=== PATIENT | female | born 1935 | race Caucasian/White ===

== ENCOUNTER 2017-06-03 11:21 | Inpatient (IN) | payer MEDICARE ==
[2017-06-03] VITALS (9 sets, daily range): BP systolic 80–132; BP diastolic 39–95
[~2017-06-03] VITALS: Ht 172.7 cm; Wt 70.3 kg
[2017-06-03] MEDS ORDERED: NORVASC2.5 MG PO (11:36)
[2017-06-03] MEDS ORDERED: PROAIR RESPICL90 MCG INH (11:37)
[2017-06-03] MEDS ORDERED: BETAMETHASONE D15 G1 TOP (11:37)
[2017-06-03 12:02] LABS: HEMATOCRIT 36.3 % (37.0-47.0); HEMOGLOBIN 12.4 gm/dL (12.0-15.0); MCH 28.9 pg (26.0-34.0); MCHC 34.2 g/dL (28.0-37.0); MCV 84.6 fL (80.0-100.0); MPV 6.9 fl. (7.2-11.1); NUCLEATED RBCS 0 /100WBC; PLATELET COUNT* 510 thou/uL (150-400); RDW-CV 13.9 % (10.5-14.5); WBC 20.3 thou/uL (4.0-11.0)
[2017-06-03 12:07] LABS: CALCIUM 9.3 mg/dL (8.5-10.1); POTASSIUM 3.6 mmol/L (3.5-5.1)
[2017-06-03 12:12] LABS: APTT 26.8 Seconds (25.0-31.3); PROTIME 10.1 Seconds (9.20-11.50)
[2017-06-03 12:18] LABS: ALBUMIN 2.6 g/dL (3.4-5.0); TOTAL BILIRUBIN 0.3 mg/dL (<0.1-1.0); TOTAL PROTEIN 7.3 g/dL (6.4-8.2)
[2017-06-03 12:20] LABS: TROPONIN-I LEVEL 2.65 ng/mL (<0.06)
[2017-06-03 12:25] LABS: ABSOLUTE LYMPHOCYTES 1.6 thou/uL (0.8-5.3); ABSOLUTE NEUTROPHILS 17.7 thou/uL (1.6-8.1); PLATELET ESTIMATE INCREASED
[2017-06-03 12:27] LABS: INFLUENZA A ANTIGEN None Detected (None Detect); INFLUENZA B ANTIGEN None Detected (None Detect)
--- NOTE | 2017-06-03 14:38 | EKG ---
[place] [address] ELECTROCARDIOGRAM REPORT Name: GUERITA BRICEET Monique Room: [place] [address] ADM IN .R.#: [id number] Admission: 06/03/17 Attend Phys: Imani Jones Discharge: Date of : 33 Report #: [id number] THIS REPORT FOR: //name// [facility] ED Test Date: 2017-06-03 Test Time: 12:35:43 Pat Name: CEASAR BRICE Department: Room: [facility] Gender: F Lead Sales Consultant: Ramila STOCKTON : 1935 Requested By: Concepcion Hull Order Number: [id number] MD: Tino Osorio Measurements Intervals [place] Rate: 119 P: -39 MA: 85 QRS: -20 QRSD: 129 T: 109 QT: 340 QTc: 479 Interpretive Statements atrial fibrillation Left bundle branch block No previous ECG available for comparison Electronically Signed On 06-03-2017 14:38:23 TELEVISION RECEIVER ANALYZER by Tino Osorio [email or web address] <ELECTRONICALLY SIGNED> By: Tino Osorio MD, [facility] 06/03/17 1438 1235 1235 Tino Osorio MD, [facility] /EPI
[2017-06-04] VITALS (20 sets, daily range): BP systolic 66–102; BP diastolic 39–66
[2017-06-04 05:48] LABS: TROPONIN-I LEVEL 4.55 ng/mL (<0.06)
[2017-06-04 06:00] LABS: CHOLESTEROL 82 mg/dL (<200); HDL CHOLESTEROL 31 mg/dL (>40); LDL CHOLESTEROL 39 mg/dL (<100); TC:HDL 2.6 Ratio (Not establshd); TRIGLYCERIDE 61 mg/dL (<150); VLDL 12 mg/dL (<40)
[2017-06-04 06:01] LABS: SERUM ASSESSMENT Clear
[2017-06-04 12:33] LABS: ABSOLUTE BASOPHILS 0.3 thou/uL (0.0-0.2); ABSOLUTE EOSINOPHILS 0.2 thou/uL (0.0-0.7); ABSOLUTE LYMPHOCYTES 1.8 thou/uL (0.8-5.3); ABSOLUTE MONOCYTES 0.7 thou/uL (0.0-1.2); ABSOLUTE NEUTROPHILS 14.3 thou/uL (1.6-8.1); BASOPHILS 1.5 %; EOSINOPHILS 1.2 %; HEMATOCRIT 37.5 % (37.0-47.0); HEMOGLOBIN 11.9 gm/dL (12.0-15.0); LYMPHOCYTES 10.7 %; MCH 28.6 pg (26.0-34.0); MCHC 31.6 g/dL (28.0-37.0); MONOCYTES 4.1 %; MPV 7.2 fl. (7.2-11.1); NUCLEATED RBCS 0 /100WBC; POLYS 82.5 %; RBC 4.14 mil/uL (4.20-5.00); RDW-CV 14.6 % (10.5-14.5); WBC 17.3 thou/uL (4.0-11.0)
[2017-06-04 12:34] LABS: MCV 90.5 fL (80.0-100.0); PLATELET COUNT* 428 thou/uL (150-400)
[2017-06-04 12:41] LABS: CALCIUM 8.7 mg/dL (8.5-10.1); MAGNESIUM 1.9 mg/dL (1.8-2.4); POTASSIUM 4.2 mmol/L (3.5-5.1)
[2017-06-04 12:43] LABS: URINE BILIRUBIN NEGATIVE (Negative); URINE BLOOD NEGATIVE (Negative); URINE CLARITY CLEAR; URINE COLOR YELLOW; URINE GLUCOSE-RANDOM NEGATIVE (Negative); URINE KETONES NEGATIVE (Negative); URINE LEUKOCYTES NEGATIVE (Negative); URINE NITRITE NEGATIVE (Negative); URINE PROTEIN TRACE (Negative); URINE SPECIFIC GRAVITY 1.025 (1.005-1.030); URINE UROBILINOGEN 0.2 E.U./dl (0.2-1.0)
--- NOTE | 2017-06-04 15:03 | 2DMMODE ---
[place] [address] 2 D/M-MODE ECHOCARDIOGRAM Name: CEASAR BRICE [facility]#: [id number] Admission: 06/03/17 Attend Phys: Sandhya Thomas Discharge: Date of : 33 Date of Service: 06/04/17 1503 Report #: [id number] THIS REPORT FOR: //name// APPROVED REPORT Study performed: 06/04/2017 09:59:17 EXAM: Comprehensive 2D, Doppler, and color-flow Echocardiogram Patient Location: In-Patient Room #: 003 Status: routine BSA: 1.82 HR: 113 bpm BP: 102/40 mmHg Rhythm: NSR Other Information Study Quality: Good Indications Congestive Heart Failure Non STEMI Sepsis 2D Dimensions LVEF(%): 40.57 (>50%) IVSd: 14.36 (7-11mm) LVOT Diam: 21.15 (18-24mm) LVDd: 50.66 mm PWd: 10.29 (7-11mm) Ascending Ao: 26.96 (22-36mm) LVDs: 40.58 (25-40mm) Aortic Root: 34.31 mm Hunter's LVEF: 40.57 % Volumes Left Atrial Volume (Systole) LA ESV Index: 29.50 mL/m2 Aortic Valve AoV Peak John.: 1.03 m/s AO Peak Gr.: 4.27 mmHg LVOT Max P.38 mmHg AO Mean Gr.: 2.45 mmHg LVOT Mean P.83 mmHg LVOT Max V: 0.59 m/s AO V2 VTI: 17.22 cm LVOT Mean V: 0.44 m/s SUZANNE (VTI): 2.40 cm2 LVOT V1 VTI: 11.76 [place] [address] 2 D/M-MODE ECHOCARDIOGRAM Name: CEASAR BRICE Room: [address] IN .R.#: [id number] Admission: 06/03/17 Attend Phys: Sandhya Thomas Discharge: Date of : 34 Date of Service: 06/04/17 1503 Report #: [id number] Mitral Valve E/A Ratio: 0.61 MV Decel. Time: 219.63 ms MV E Max John.: 0.69 m/s MV PHT: 63.69 ms MVA (PHT): 3.45 cm2 TDI E/Lateral E': 3.45 E/Medial E': 11.50 Medial E' John.: 0.06 m/s Lateral E' John.: 0.20 m/s Pulmonary Valve PV Peak John.: 0.78 m/s PV Peak Gr.: 2.45 mmHg Tricuspid Valve TR Peak Gr.: 27.71 mmHg RVSP: 32.00 mmHg Left Ventricle The left ventricle is normal size. There is mild global hypokinesis. Mild concentric left ventricular hypertrophy. Left ventricular systolic function is mild to moderately decreased. LVEF is 35-40%. Grade I - abnormal relaxation pattern. Right Ventricle The right ventricle is normal size. The right ventricular systolic function is normal. Atria The left atrium size is normal. The right atrium size is normal. Aortic Valve Mild aortic valve sclerosis. No aortic regurgitation is present. There is no aortic valvular stenosis. Mitral Valve The mitral valve is normal in structure. Mild mitral regurgitation. No evidence of mitral valve stenosis. Tricuspid Valve The tricuspid valve is normal in structure. Mild tricuspid regurgitation. The RVSP is 30-35 mmHg. Pulmonic Valve The pulmonary valve is normal in structure. [place] [address] 2 D/M-MODE ECHOCARDIOGRAM Name: CEASAR BRICE Room: [address] IN [facility]#: [id number] Admission: 06/03/17 Attend Phys: Sandhya Thomas Discharge: Date of : 33 Date of Service: 06/04/17 1503 Report #: [id number] regurgitation. Great Vessels The aortic root is normal in size. IVC is normal in size and collapses with >50% inspiration Pericardium There is no pericardial effusion. <Conclusion> The left ventricle is normal size. Mild concentric left ventricular hypertrophy. Left ventricular systolic function is mild to moderately decreased. LVEF is 35-40%. Grade I - abnormal relaxation pattern. There is mild global hypokinesis. Mild aortic valve sclerosis. Mild mitral regurgitation. Mild tricuspid regurgitation. The RVSP is 30-35 mmHg. <ELECTRONICALLY SIGNED> By: Francois Gore MD, FACC 06/04/17 1503 1503 1503 Francois Gore MD, FACC /INF
--- NOTE | 2017-06-04 16:48 | EKG ---
[place] [address] ELECTROCARDIOGRAM REPORT Name: CEASAR BRICE Room: [address] ADM IN M.R.#: [id number] Admission: 06/03/17 Attend Phys: Imani Jones Discharge: Date of : 34 Report #: [id number] THIS REPORT FOR: //name// [facility] Test Date: 2017-06-04 Test Time: 08:02:25 Pat Name: CEASAR BRICE Department: Room: [address] Gender: F Mechanical Spreader Operator: : 1935 Requested By: Tino Osorio Order Number: [id number] Colleen MD: Tino Osorio Measurements Intervals [place] Rate: 103 P: 70 MO: 158 QRS: -12 QRSD: 133 T: 84 QT: 385 QTc: 504 Interpretive Statements Sinus tachycardia Atrial premature complex Left bundle branch block Baseline wander in lead(s) V3 Compared to ECG 06/03/2017 12:35:43 Atrial fibrillation no longer present Electronically Signed On 06-04-2017 16:48:05 APPLICATIONS ENGINEER MANUFACTURING by Tino Osorio [email or web address] <ELECTRONICALLY SIGNED> By: Tino Osorio MD, [facility] 06/04/17 1648 0802 0802 Tino Osorio MD, [facility] /EPI
--- NOTE | 2017-06-04 16:55 | EKG ---
[place] [address] ELECTROCARDIOGRAM REPORT Name: EMILIACEASAR CHAUDHARI Monique Room: [address] ADM IN M.R.#: [id number] Admission: 06/03/17 Attend Phys: Imani Jones Discharge: Date of : 34 Report #: [id number] THIS REPORT FOR: //name// [facility] Test Date: 2017-06-04 Test Time: 10:45:33 Pat Name: CEASAR BRICE Department: Room: [address] Gender: F Tray Delivery Aide: ANNE : 1935 Requested By: Tino Osorio Order Number: [id number] Colleen MD: Tino Osorio Measurements Intervals [place] Rate: 84 P: 73 OR: 151 QRS: 5 QRSD: 118 T: 129 QT: 409 QTc: 484 Interpretive Statements Sinus rhythm low voltage LBBB left atrial enlargement Electronically Signed On 06-04-2017 16:54:59 FORMING DEPARTMENT SUPERVISOR by Tino Osorio [email or web address] <ELECTRONICALLY SIGNED> By: Tino Osorio MD, [facility] 06/04/17 1654 1045 1045 Tino Osorio MD, FACC /EPI
--- NOTE | 2017-06-04 17:09 | CON ---
[address] [address] CONSULTATION Name: YUNIELCEASAR Amaya Room: [address] IN M.R.#: [id number] Admission: 06/03/17 Attend Phys: Imani Jones Discharge: Date of : 34 Report #: [id number] THIS REPORT FOR: //name// CC: Sandhya VEGA DATE OF SERVICE: 06/03/2017 TYPE OF REPORT: Cardiology consultation. HISTORY OF PRESENT ILLNESS: The patient is an 81-year-old single white female who was asked to see in the hospital today after she is noted to have an elevated troponin. No old records available. The patient previously smoked a pack of cigarettes a day for about 30 years. She states she was doing well until a couple weeks ago. She developed night sweats, coughing green phlegm and increasing shortness of breath. She apparently went to a clinic near her hometown in [place]. She is placed on antibiotics and given a nebulizer. She states at that time, she was told her blood pressure is low. Because she was getting more short of breath, her daughter who lives in [place], drove to [place] and brought her back to this area. However, because of increasing shortness of breath, the patient finally came to the Emergency Room today. She denies any significant edema. She does have occasional epigastric pain, but there is no radiation to her arms or jaw. She has complained of being weak. She notes occasional skipping of her heartbeat, but no syncope. PAST MEDICAL HISTORY: Otherwise significant for cholecystectomy, hysterectomy, cataract extraction and hypertension. No history of diabetes. MEDICATIONS: At home consisted of amlodipine and lisinopril HCT. ALLERGIES: She has no known drug allergies. FAMILY HISTORY: She has 2 sisters that had coronary bypass surgery. SOCIAL HISTORY: She is , [place] town and although her daughter lives in [place]. She quit smoking a couple of weeks ago. No alcohol abuse. REVIEW OF SYSTEMS: She has had no history of stroke, peptic ulcer disease, liver disease, kidney disease, cancer, psychiatric illness or chronic skin condition. She does wear glasses. PHYSICAL EXAMINATION: GENERAL: Revealed an elderly female who was sitting on a stretcher. She appeared in no acute distress. VITAL SIGNS: Show blood pressure 120/70, pulse is 110 [place] [address] CONSULTATION Name: CEASAR BRICE Room: [address]#: [id number] Admission: 06/03/17 Attend Phys: Imani Jones Discharge: Date of : 34 Report #: [id number] HEENT: She was anicteric. Conjunctivae pink. Mucous members appear moist. NECK: Veins do not appear distended. CHEST: No coarse breath sounds bilaterally. CARDIAC: Irregular tachycardia. No significant murmur. ABDOMEN: Soft. EXTREMITIES: Had no pitting edema. RADIOLOGICAL DATA: Her ECG on admission showed what appears to represent sinus tachycardia with frequent PACs and a left bundle-branch block. Her workup in the Emergency Room today, she had a chest x-ray that showed cardiomegaly, interstitial prominence, no infiltrate, no pulmonary edema. LABORATORY DATA: Sodium 141, creatinine 1.0 and glucose 129. Her troponin is 2.65. BNP 21,337. White blood cell count 20,000 and hemoglobin 12.4. IMPRESSION AND RECOMMENDATIONS: 1. Wwd-VC-azjudrhup myocardial infarction. Because of her chronic obstructive pulmonary disease and bronchitis, I would not recommend cardiac catheterization at this time. I would give the patient aspirin and heparin. After her pulmonary status is stabilized, we will consider cardiac catheterization. 2. Chronic obstructive pulmonary disease. 3. Bronchitis. 4. History of tobacco abuse. 5. History of hypertension. The patient has been on a calcium irena, angiotensin-converting enzyme inhibitor and diuretic in the past. <ELECTRONICALLY SIGNED> By: Tino Osorio MD, FACC 06/04/17 1709 1508 [id number] Osorio MD, FACC /nt
[2017-06-05] VITALS (15 sets, daily range): BP systolic 82–140; BP diastolic 42–79
[2017-06-05 03:24] LABS: ABSOLUTE MONOCYTES 0.2 thou/uL (0.0-1.2); ABSOLUTE NEUTROPHILS 12.2 thou/uL (1.6-8.1); BASOPHILS 0.3 %; EOSINOPHILS 0.1 %; HEMATOCRIT 30.4 % (37.0-47.0); HEMOGLOBIN 10.4 gm/dL (12.0-15.0); LYMPHOCYTES 7.2 %; MCHC 34.2 g/dL (28.0-37.0); MONOCYTES 1.4 %; MPV 6.9 fl. (7.2-11.1); NUCLEATED RBCS 0 /100WBC; PLATELET COUNT* 370 thou/uL (150-400); RBC 3.58 mil/uL (4.20-5.00); RDW-CV 13.8 % (10.5-14.5); WBC 13.4 thou/uL (4.0-11.0)
[2017-06-05 03:50] LABS: ALBUMIN 2.9 g/dL (3.4-5.0); CALCIUM 8.9 mg/dL (8.5-10.1); CREATININE 0.9 mg/dL (0.6-1.3); TOTAL BILIRUBIN 0.3 mg/dL (<0.1-1.0); TOTAL PROTEIN 5.8 g/dL (6.4-8.2)
[2017-06-05 04:19] LABS: POTASSIUM 5.7 mmol/L (3.5-5.1)
[2017-06-05 12:49] LABS: CALCIUM 9.1 mg/dL (8.5-10.1); CREATININE 0.9 mg/dL (0.6-1.3)
[2017-06-05 12:50] LABS: POTASSIUM 4.4 mmol/L (3.5-5.1)
--- NOTE | 2017-06-05 16:15 | EKG ---
[place] [address] ELECTROCARDIOGRAM REPORT Name: EMILIAFARACEASAR Monique Room: [address] ADM IN M.R.#: [id number] Admission: 06/03/17 Attend Phys: Imani Jones Discharge: Date of : 34 Report #: [id number] THIS REPORT FOR: //name// [facility] Test Date: 2017-06-05 Test Time: 12:51:04 Pat Name: CEASAR BRICE Department: Room: [address] Gender: F Call Specialist: : 1935 Requested By: Tino Osorio Order Number: [id number] Colleen MD: Tino Osorio Measurements Intervals [place] Rate: 101 P: 62 CO: 163 QRS: -10 QRSD: 129 T: 107 QT: 362 QTc: 470 Interpretive Statements Sinus tachycardia Left bundle branch block Compared to ECG 06/04/2017 10:45:33 Sinus rhythm no longer present Electronically Signed On 06-05-2017 16:15:15 MANAGER QUALITY SYSTEMS by Tino Osorio [email or web address] <ELECTRONICALLY SIGNED> By: Tino Osorio MD, [facility] 06/05/17 1615 1251 1251 Tino Osorio MD, [facility] /EPI
[2017-06-06] VITALS (8 sets, daily range): BP systolic 81–110; BP diastolic 48–58
[2017-06-06 05:36] LABS: HEMATOCRIT 32.4 % (37.0-47.0); HEMOGLOBIN 10.6 gm/dL (12.0-15.0); MCH 28.8 pg (26.0-34.0); MCHC 32.6 g/dL (28.0-37.0); MCV 88.5 fL (80.0-100.0); MPV 7.4 fl. (7.2-11.1); RBC 3.66 mil/uL (4.20-5.00); RDW-CV 14.1 % (10.5-14.5); WBC 23.9 thou/uL (4.0-11.0)
[2017-06-06 05:43] LABS: CALCIUM 9.3 mg/dL (8.5-10.1); POTASSIUM 4.9 mmol/L (3.5-5.1)
[2017-06-06 05:57] LABS: TROPONIN-I LEVEL 0.93 ng/mL (<0.06)
--- NOTE | 2017-06-06 11:08 | CON ---
[address] [address] CONSULTATION Name: CEASAR BRICE Room: [address] IN .R.#: [id number] Admission: 06/03/17 Attend Phys: Imani Jones Discharge: Date of : 34 Report #: [id number] THIS REPORT FOR: //name// CC: Sandhya VEGA REQUESTING PHYSICIAN: Dr. Thomas. REASON FOR CONSULTATION: History of lung disease. DISCUSSION: The patient is an 81-year-old woman who was admitted after presenting several days ago with complaints of increasing shortness of breath. It actually had been going on for a period of time. She has a long history of tobacco abuse. However, her last cigarette was about 2-3 weeks ago. She lives in [place]. Her daughter, however, brought her back to this area (her daughter lives here). She was brought to the Emergency Department 2 days ago. She was having more cough and shortness of breath. Had a recent Z-TANG. She does have a ProAir inhaler at home. She is not on any other breathing medications at home. She has been found to have a non-STEMI. Cardiology has seen her. She is about to be taken [facility] [place] [place] for cardiac catheterization. We have no old records on her at this time. She does note that she has been told that she has COPD and chronic bronchitis. About a year ago, she notes she was quite ill with influenza and pneumonia. However, she was not intubated nor in the Intensive Care Unit. There was concern that she may not actually pull through that. She has had her flu shot for this season. She denies ever having the pneumonia vaccine. She has chronic cough. Her sputum now is increased. It has been yellow, no hemoptysis. It is very thick. She does note regular Mucinex actually keeps her from coughing, so that was discontinued. She has been provided with an Aerobika. She is on neb treatments here. PAST MEDICAL HISTORY: Remarkable for the COPD as noted. She has not had spirometry or PFTs. She has had a prior appendectomy, cholecystectomy, hysterectomy and tonsillectomy. No prior history of thromboembolic disease or heart disease that she is aware of. SOCIAL HISTORY: She has been living in [place]. She has a daughter in the area here. There has been at least a pack of cigarettes per day with her last cigarette several weeks ago. REVIEW OF SYSTEMS: Note positives as above. Currently, denying any chest pain. She notes she is chronically short of breath. She feels like really has not improved since she has been in the hospital. [place] [address] CONSULTATION Name: EMILIAFARACEASAR Monique Room: [address] IN [facility].#: [id number] Admission: 06/03/17 Attend Phys: Imani Jones Discharge: Date of : 34 Report #: [id number] extremity edema. Appetite has been fair. Denies any vomiting. Denies any diarrhea. No syncopal episodes. FAMILY HISTORY: Positive for lung disease. PHYSICAL EXAMINATION: GENERAL APPEARANCE: A chronically ill-appearing woman. She was resting over the side of the bed. She is alert, cooperative. She is in no acute distress. She is able to speak in full sentences. HEENT: Head is normocephalic and atraumatic. Sclerae are nonicteric. Mucous membranes are a little dry. Dentition is poor. She is missing some teeth. NECK: Negative for adenopathy. Neck veins are little full. HEART: Regular. Tones are quite distant. I do not appreciate an S3. LUNGS: Show breath sounds to be markedly diminished. She has a prolonged expiratory phase. Does have a few rhonchi heard and some late expiratory wheezes. Excursion is equal. ABDOMEN: Appears soft, without any definite hepatosplenomegaly noted. EXTREMITIES: She has no clubbing. Radial pulses are present. Lower extremities do reveal some brawny changes pretibial areas. No definite edema, no calf tenderness. NEUROLOGIC: She is alert and oriented x 3. Moving all extremities. LABORATORY AND X-RAY FINDINGS: Chest x-ray was reviewed. On the study done, heart size is enlarged. Does have prominence of interstitial markings noted throughout. It is difficult to know how much is pulmonary edema versus chronic interstitial lung disease. No significant pleural effusions. On her chemistry this morning, BUN is 18, creatinine is 0.9, potassium 5.7. Albumin was 2.9. Her proBNP on admission was just over 21,000. Today it is just over 17,000. Her troponins had peaked at 5.41. White blood cell count on admission was 20,300; down to 13,400 today. Hemoglobin 10.4; hematocrit of 30.4; platelets 370,000. Influenza screen was negative. Blood cultures sent on admission were negative. No blood gases were done. IMPRESSION: 1. Bilateral interstitial infiltrates. Suspect much of this is pulmonary edema. I cannot rule out a component of underlying pulmonary fibrosis or interstitial lung disease. 2. Chronic obstructive pulmonary disease, severity unknown. I suspect it is probably at least moderate. 3. History of tobacco abuse, has been smoking up until recently. 4. Non-ST elevation myocardial infarction. Does appear now to have a decrease in her LV function (35%-40% EF). RECOMMENDATIONS: 1. O2 and wean as able. 2. We will continue bronchodilator therapy and IV steroids at this point. [address] [address] CONSULTATION Name: CEASAR BRICE Room: [address] IN .R.#: [id number] Admission: 06/03/17 Attend Phys: Imani Jones Discharge: Date of : 34 Report #: [id number] her through the heart catheterization. 3. Continue long-term smoking cessation, is certainly imperative. 4. Consider full pulmonary function studies in the future. <ELECTRONICALLY SIGNED> By: Andrew Peterson MD 06/06/17 1108 1017 1112Nancy Fenton MD /nt
[2017-06-06 12:06] LABS: GLYCOHEMOGLOBIN (HGB A1C) 5.2 % (4.8-5.6)
--- NOTE | 2017-06-06 13:53 | EKG ---
[place] [address] ELECTROCARDIOGRAM REPORT Name: EMILIAFARACEASAR Monique Room: [address] ADM IN M.R.#: [id number] Admission: 06/03/17 Attend Phys: Imani Jones Discharge: Date of : 34 Report #: [id number] THIS REPORT FOR: //name// [facility] Test Date: 2017-06-06 Test Time: 08:42:23 Pat Name: CEASAR BRICE Department: Room: [facility] Gender: F Commercial Sales Director: : 1935 Requested By: Tino Osorio Order Number: [id number] Colleen MD: Francois Gore Measurements Intervals [place] Rate: 72 P: 52 MS: 155 QRS: -19 QRSD: 137 T: 111 QT: 425 QTc: 466 Interpretive Statements Sinus rhythm Left bundle branch block Compared to ECG 06/05/2017 12:51:04 Sinus tachycardia no longer present Electronically Signed On 06-06-2017 13:52:47 POULTRY INSEMINATOR by Francois oGre [email or web address] <ELECTRONICALLY SIGNED> By: Francois Gore MD, [facility] 06/06/17 1352 1 1 Francois Gore MD, FAC /EPI
--- NOTE | 2017-06-06 15:06 | CARD ---
[address] [address] CARDIAC CATH REPORT Name: CEASAR BRICE Room: [address] IN [facility].#: [id number] Admission: 06/03/17 Attend Phys: Imani Jones Discharge: Date of : 34 Report #: [id number] THIS REPORT FOR: //name// APPROVED REPORT Patient Details Patient Status: In-Patient Room #: The patient is a 81 year-old female Procedures Performed cath pci Indication Non-STEMI Risk Factors Tobacco History () Admission/Lab Medications/Medications given during procedure Heparin Unfract. Procedure Narrative The patient was brought electively to the Cardiac Catheterization Laboratory and was prepped and draped in a sterile manner. The right wrist was infiltrated with 1% Lidocaine subcutaneous anesthesia. A 6 fr sheath was inserted into the right radial artery. Coronary angiography was performed using coronary diagnostic catheters. The right coronary system was accessed and visualized with a Diagnostic catheter. The left coronary system was accessed and visualized with a Diagnostic catheter. The left ventricle was accessed and visualized with a Diagnostic catheter. Left ventricular/Aortic Valve gradient assessed via catheter pullback. Left ventriculogram was performed in CASTANEDA projection. Closure device was deployed with a 6 Fr vascband. Hemostasis was obtained with manual pressure following sheath removal without any complications. The patient tolerated the procedure well and there were no complications associated with the procedure. There was no hematoma. Coronary Angiography The patient's coronary anatomy is left dominant. Diagnostic Cath Left Main 0% stenosis LAD 0% stenosis Diagonal 1 proximal 60% stenosis [address] [address] CARDIAC CATH REPORT Name: CEASAR BRICE Room: [address] IN [facility].#: [id number] Admission: 06/03/17 Attend Phys: Imani Jones Discharge: Date of : 34 Report #: [id number] Circumflex 80% stenosis just prior to takeoff of 3rd marginal branch OM2 ostial 70% stenosis OM3 ostial 60% stenosis Right Coronary 0% stenosis Left Ventriculography The left ventricular ejection fraction is estimated to be 40-45%. There is 1+ mitral insufficiency. global hypokinesis noted Hemodynamics The left ventricular end diastolic pressure is 30 mmHg. There was no gradient across the aortic valve upon pullback. Pullback from the left ventricle to the aorta revealed no gradient across the aortic valve. PCI Technique Lesion Anticoagulation was achieved with Heparin. Patient was preloaded with Brillinta. Percutaneous coronary intervention was performed on the mid circumflex artery segment. The lesion stenosis prior to intervention was 80% with CASSIA 3 flow. A xb3.5 Guide Catheter was used to engage the lm ostium. A bmw Interventional Guidewire was used to cross the lesion. STENT DEPLOYMENT A drug-eluting stent 28 x 2.75 mm was inserted and inflated up to 20atm for 15seconds. Repeat angiography revealed the following post-stent deployment results: 0% stenosis. Final angiography reveals 0 % stenosis with CASSIA 3 flow. Conclusion 1. cad manifested by 60% diagonal stenosis, 80% mid circumflex stenosis, 70% ostial stenosis of the 2nd marginal branch, and 60% stenosis of the ostium of the 3rd marginal branch 2. cardiomyopathy with EF 40-45% 3. successful placement of a single drug eluting stent in the mid circumflex artery Recommendations Smoking Cessation Cardiac Rehabilitation Referral [facility] [place] [address] CARDIAC CATH REPORT Name: CEASAR BRICE Room: [address] IN .R.#: [id number] Admission: 06/03/17 Attend Phys: Imani Jones Discharge: Date of : 34 Report #: [id number] Medications Administered Ticagrelor <ELECTRONICALLY SIGNED> By: Tino Osorio MD, FACC 06/06/17 1506 1506 1506Tino Osorio MD, FAC /INF
[2017-06-07] VITALS: BP 85/48
[2017-06-07 04:09] VITALS: BP 86/42
[2017-06-07 05:33] LABS: HEMATOCRIT 31.3 % (37.0-47.0); HEMOGLOBIN 10.3 gm/dL (12.0-15.0); MCH 28.6 pg (26.0-34.0); MCHC 32.9 g/dL (28.0-37.0); MPV 7.4 fl. (7.2-11.1); RBC 3.6 mil/uL (4.20-5.00); RDW-CV 14.1 % (10.5-14.5); WBC 15.7 thou/uL (4.0-11.0)
[2017-06-07 05:41] LABS: CALCIUM 9.1 mg/dL (8.5-10.1); POTASSIUM 4.7 mmol/L (3.5-5.1)
[2017-06-07 08:40] VITALS: BP 102/55
[2017-06-07 10:51] VITALS: BP 110/56
[2017-06-07] MEDS ORDERED: ATORVASTATIN CA40 MG PO (11:38)
[2017-06-07] MEDS ORDERED: LEVAQUIN 750 M750 MG PO (11:38)
[2017-06-07] MEDS ORDERED: BRILINTA90 MG PO (11:38)
[2017-06-07] MEDS ORDERED: PREDNISONE 10 M10 MG PO (11:41)
[2017-06-07] MEDS ORDERED: LASIX 40 MG TAB40 M2 PO (11:41)
[2017-06-07] MEDS ORDERED: ALDACTONE25 MG PO (11:41)
[2017-06-07] MEDS ORDERED: ASPIR 8181 MG PO (11:41)
[2017-06-07] MEDS ORDERED: MUCINEX600 MG PO (11:41)
[2017-06-07] MEDS ORDERED: LISINOPRIL10 MG PO (11:41)
[2017-06-07] MEDS ORDERED: CARVEDILOL3.125 MG PO (11:43)
[2017-06-07 12:31] VITALS: BP 108/59
[2017-06-07] MEDS ORDERED: NITROGLYCERIN0.4 MG SUBLING (13:23)
[2017-06-07] MEDS ORDERED: LISINOPRIL-HCT1 EACH PO (13:44)
== END 2017-06-07 15:37 | disposition home or self-care (01) | DRG 246 ==
LOC: M.ERS 11:21 → M.TBA-ER 13:38 → M.ICU 13:38 → M.2W 06-05 21:51
PROVIDERS: Internal Medicine Cardiovascular Disease; Nurse Practitioner Family; Personal Emergency Response Attendant; ADMIT Internal Medicine
PROC: 027034Z Dilation of Coronary Artery, One Artery with Drug-eluting Intraluminal Device, Percutaneous Approach (ICD-10-PCS; principal; 2017-06-06)
PROC: B2151ZZ Fluoroscopy of Left Heart using Low Osmolar Contrast (ICD-10-PCS; principal; 2017-06-06)
PROC: B2111ZZ Fluoroscopy of Multiple Coronary Arteries using Low Osmolar Contrast (ICD-10-PCS; principal; 2017-06-06)
PROC: 4A023N7 Measurement of Cardiac Sampling and Pressure, Left Heart, Percutaneous Approach (ICD-10-PCS; principal; 2017-06-06)
DX: I21.4 Non-ST elevation (NSTEMI) myocardial infarction (principal); J96.01 Acute respiratory failure with hypoxia; J15.9 Unspecified bacterial pneumonia; I50.41 Acute combined systolic (congestive) and diastolic (congestive) heart failure; J44.0 Chronic obstructive pulmonary disease with (acute) lower respiratory infection; R65.10 Systemic inflammatory response syndrome (SIRS) of non-infectious origin without acute organ dysfunction; I47.2 Ventricular tachycardia; J44.1 Chronic obstructive pulmonary disease with (acute) exacerbation; I42.9 Cardiomyopathy, unspecified; I11.0 Hypertensive heart disease with heart failure; J20.9 Acute bronchitis, unspecified; Z90.49 Acquired absence of other specified parts of digestive tract; Z90.710 Acquired absence of both cervix and uterus; Z98.49 Cataract extraction status, unspecified eye; Z82.49 Family history of ischemic heart disease and other diseases of the circulatory system; Z87.891 Personal history of nicotine dependence; Z79.899 Other long term (current) drug therapy

== ENCOUNTER 2017-06-13 09:35 | Inpatient (IN) | payer MEDICARE, SELFPAY ==
[~2017-06-13] VITALS: Ht 172.7 cm; Wt 65.8 kg
[~2017-06-13 09:35] MED LIST: ALDACTONE25 MG PO; ASPIR 8181 MG PO; ATORVASTATIN CA40 MG PO; BETAMETHASONE D15 G1 TOP; BRILINTA90 MG PO; CARVEDILOL3.125 MG PO; LASIX 40 MG TAB40 M2 PO; LEVAQUIN 750 M750 MG PO; LISINOPRIL-HCT1 EACH PO; LISINOPRIL10 MG PO; MUCINEX600 MG PO; NITROGLYCERIN0.4 MG SUBLING; NORVASC2.5 MG PO; PREDNISONE 10 M10 MG PO; PROAIR RESPICL90 MCG INH
[2017-06-13 09:37] VITALS: BP 110/27; BP 121/61
[2017-06-13 10:18] LABS: HEMATOCRIT 45.8 % (37.0-47.0); HEMOGLOBIN 14.9 gm/dL (12.0-15.0); MCH 28.6 pg (26.0-34.0); MCHC 32.6 g/dL (28.0-37.0); MCV 87.9 fL (80.0-100.0); MPV 7.8 fl. (7.2-11.1); NUCLEATED RBCS 0 /100WBC; PLATELET COUNT* 476 thou/uL (150-400); RBC 5.21 mil/uL (4.20-5.00); RDW-CV 16.2 % (10.5-14.5); WBC 20.3 thou/uL (4.0-11.0)
[2017-06-13 10:26] LABS: CALCIUM 9.1 mg/dL (8.5-10.1); CREATININE 1.4 mg/dL (0.6-1.3); POTASSIUM 3.2 mmol/L (3.5-5.1)
[2017-06-13 10:28] LABS: APTT 23.4 Seconds (25.0-31.3); INR 1.1; PROTIME 10.7 Seconds (9.20-11.50)
[2017-06-13 10:36] LABS: ALBUMIN 3.6 g/dL (3.4-5.0); MAGNESIUM 2.2 mg/dL (1.8-2.4); TOTAL PROTEIN 7.2 g/dL (6.4-8.2); TROPONIN-I LEVEL 0.21 ng/mL (<0.06)
[2017-06-13 10:37] LABS: ABSOLUTE LYMPHOCYTES 0.6 thou/uL (0.8-5.3); ABSOLUTE NEUTROPHILS 18.7 thou/uL (1.6-8.1)
[2017-06-13 10:38] LABS: PLATELET ESTIMATE INCREASED
[2017-06-13 12:01] VITALS: BP 115/61
[2017-06-13 12:21] VITALS: BP 118/47
[2017-06-13 12:35] VITALS: BP 118/47
--- NOTE | 2017-06-13 14:54 | EKG ---
[place] [address] ELECTROCARDIOGRAM REPORT Name: CEASAR BRICE Room: [address] ADM IN .R.#: [id number] Admission: 06/13/17 Attend Phys: Shania Oneil Discharge: Date of : 34 Report #: [id number] THIS REPORT FOR: //name// [facility] ED Test Date: 2017-06-13 Test Time: 09:44:57 Pat Name: CEASAR BRICE Department: Room: [facility] Gender: F Center Administrator: Ramila RIVERA : 1935 Requested By: Yunior Hsieh Order Number: [id number] MD: Tino Osorio Measurements Intervals [place] Rate: 102 P: 62 PA: 164 QRS: 51 QRSD: 130 T: QT: 371 QTc: 484 Interpretive Statements Sinus tachycardia Multiple premature complexes, vent & supraven LBBB Baseline wander in lead(s) V4 Compared to ECG 06/06/2017 08:42:23 Sinus rhythm no longer present pac's and pvc's now seen Electronically Signed On 06-13-2017 14:54:25 PLASTERER FOREMAN by Tino Osorio [email or web address] <ELECTRONICALLY SIGNED> By: Tino Osorio MD, FAC 06/13/17 1454 0944 0944 Tino Osorio MD, FAC /EPI
[2017-06-13 16:00] VITALS: BP 119/55
[2017-06-13 17:57] LABS: BE 1.6 mmol/L (-2 to +3); HCO3 25.2 mmol/L (22.0-26.0); PCO2 36.3 mmHg (35.0-45.0); PO2 82.1 mmHg (75.0-100.0); pH 7.459 (7.340-7.450)
[2017-06-13 20:00] VITALS: BP 120/51
[2017-06-14] VITALS: BP 101/35
[2017-06-14 04:00] VITALS: BP 99/39
[2017-06-14 05:46] LABS: ABSOLUTE BASOPHILS 0.1 thou/uL (0.0-0.2); ABSOLUTE LYMPHOCYTES 0.4 thou/uL (0.8-5.3); ABSOLUTE MONOCYTES 0.3 thou/uL (0.0-1.2); ABSOLUTE NEUTROPHILS 21.4 thou/uL (1.6-8.1); BASOPHILS 0.5 %; HEMATOCRIT 36.5 % (37.0-47.0); LYMPHOCYTES 1.7 %; MCH 28.6 pg (26.0-34.0); MCHC 32.5 g/dL (28.0-37.0); MCV 88.2 fL (80.0-100.0); MONOCYTES 1.4 %; NUCLEATED RBCS 0 /100WBC; POLYS 96.4 %; RBC 4.14 mil/uL (4.20-5.00); RDW-CV 16.1 % (10.5-14.5); WBC 22.2 thou/uL (4.0-11.0)
[2017-06-14 05:53] LABS: HEMOGLOBIN 11.9 gm/dL (12.0-15.0); PLATELET COUNT* 347 thou/uL (150-400)
[2017-06-14 06:13] LABS: ALBUMIN 2.6 g/dL (3.4-5.0); CALCIUM 8.2 mg/dL (8.5-10.1); POTASSIUM 4.4 mmol/L (3.5-5.1); TOTAL BILIRUBIN 0.4 mg/dL (<0.1-1.0); TOTAL PROTEIN 5.4 g/dL (6.4-8.2)
[2017-06-14 08:00] VITALS: BP 113/82
[2017-06-14 12:01] VITALS: BP 84/45
[2017-06-14 16:00] VITALS: BP 94/43
[2017-06-14 20:00] VITALS: BP 92/67
[2017-06-15 00:32] VITALS: BP 96/39
[2017-06-15 04:31] VITALS: BP 100/42
[2017-06-15 06:00] LABS: ABSOLUTE LYMPHOCYTES 0.3 thou/uL (0.8-5.3); ABSOLUTE MONOCYTES 0.5 thou/uL (0.0-1.2); ABSOLUTE NEUTROPHILS 31.2 thou/uL (1.6-8.1); BASOPHILS 0.1 %; HEMATOCRIT 38.2 % (37.0-47.0); HEMOGLOBIN 12.5 gm/dL (12.0-15.0); LYMPHOCYTES 1.1 %; MCH 28.9 pg (26.0-34.0); MCHC 32.8 g/dL (28.0-37.0); MONOCYTES 1.6 %; MPV 8.4 fl. (7.2-11.1); NUCLEATED RBCS 0 /100WBC; PLATELET COUNT* 341 thou/uL (150-400); POLYS 97.2 %; RBC 4.34 mil/uL (4.20-5.00); RDW-CV 16.5 % (10.5-14.5)
[2017-06-15 06:35] LABS: CALCIUM 8.7 mg/dL (8.5-10.1)
--- NOTE | 2017-06-15 07:35 | CON ---
[address] [address] CONSULTATION Name: CEASAR BRICE Room: [address] IN .R.#: [id number] Admission: 06/13/17 Attend Phys: Shania Oneil Discharge: Date of : 34 Report #: [id number] THIS REPORT FOR: //name// CC: Tino Durán DO DATE OF SERVICE: 06/14/2017 ATTENDING PHYSICIAN: Gian Durán DO. PRIMARY CARE PHYSICIAN: Dr. Rashi Cam PIZZA COOK: Tino Osorio MD LOCATION: Room No. 221. INDICATION FOR CONSULTATION: COPD, pulmonary fibrosis and dyspnea. CLINICAL SUMMARY: The patient is an 81-year-old female, recent smoker with moderate to moderately severe COPD. The patient was admitted to the hospital with a 2-3 day history of increasing cough with shortness of breath. She was found to have a slightly elevated troponin. She may have been in some mild fluid overload. She has had some cough with some yellowish sputum. She is living with one of her grandsons, I believe in town. She had just recently moved from [place] lived [place] and there was no heat in the cabin according to the patient's grandson. I am not sure if she is up to date on her flu and pneumonia shots. She has had COPD for several years. She is not on oxygen at home. She does have a nebulizer at home and occasionally she would use a ProAir inhaler when she was short of breath. Her room air O2 sats were 81% in the entertainment musician's office and she was admitted over here for that. She feels better on 2-3 liters of oxygen that she is on now and she may need a workup to see if she requires oxygen at home. She was just discharged from the Cardiology service about a week ago after she came in and had a circumflex lesion and had coronary artery disease and had a stent placed in the mid circumflex with a drug-eluting stent. Her EF was around 40-45% then. No pulmonary hypertension was noted. She has no fever, chills or sweats. PAST MEDICAL HISTORY: COPD mixed with pulmonary fibrosis. No evidence of DVT or pulmonary emboli. She has a history of hypertension, history of bronchitis and tobacco use and again an ischemic cardiomyopathy with [place] [address] CONSULTATION Name: CEASAR BRICE Room: [address]#: [id number] Admission: 06/13/17 Attend Phys: Shania Oneil Discharge: Date of : 34 Report #: [id number] ALLERGIES: She has no known medical allergies. PAST SURGICAL HISTORY: Includes cholecystectomy, hysterectomy and cataract extraction. MEDICATIONS: Home medications include an albuterol inhaler, she is supposed to be on DuoNeb nebulizers 2-4 times a day, furosemide 40 mg daily, Mucinex 600 mg b.i.d. She is on Levaquin 750 mg daily. She is on that in the hospital. Currently on lisinopril/hydrochlorothiazide 10/12.5 mg once daily, prednisone was a tapering 40 mg taper, spironolactone was 25 mg daily, Brilinta was 90 mg b.i.d. and carvedilol 3.125 mg b.i.d. FAMILY HISTORY: She has two sisters with coronary artery bypass grafting. Negative for premature pulmonary disease. SOCIAL HISTORY: The patient is . She has a son and a daughter. She has a grandson who lives in town here in [place] and appears quite involved with her care. She was still smoking about a half to one pack a day and has about a 35-40 pack year history. Denies any alcohol or illicit drug use. REVIEW OF SYSTEMS: A 14-point review of systems reviewed and negative except for pertinent positives noted in the HPI. PHYSICAL EXAMINATION: GENERAL: This is a pleasant and alert 81-year-old female who visits with me with her grandson in the room. She is sitting upright and talking to me and answering all my questions in full sentences. VITAL SIGNS: Blood pressure is 113/82, her heart rate is 84, respirations are 20, temperature is 36.6 degrees and saturation on 3 liters is 94%. HEENT: She has some carious teeth. She is missing some teeth on her lower gumline. Pharynx otherwise is clear. NECK: Supple without nodes. No increase in jugular venous pressure. She has some loss of musculature noted about her neck and chest wall. CHEST: Shows diminished breath sounds with bilateral expiratory wheeze, prolonged expiratory phase, some use of accessory muscles. CARDIOVASCULAR: Regular rate and rhythm without murmur, gallop or rub. Heart rate is in the 80s. No S3 is noted. ABDOMEN: Soft without masses or megaly. EXTREMITIES: She has no cyanosis, clubbing or edema. She has negative Homans sign bilaterally. There is no calf tenderness and peripheral pulses are 2+. SKIN: Dry and intact. NEUROLOGIC: Grossly intact while she is sitting in bed. She can stand at the bedside. LABORATORY DATA: From this morning, hemoglobin is 11, white count is 22,000 on steroids and previously was 20,000. Her platelets were 347,000 and again normal [facility] [address] [place] [address] CONSULTATION Name: CEASAR BRICE Room: [address] IN M.R.#: [id number] Admission: 06/13/17 Attend Phys: Shania Oneil Discharge: Date of : 34 Report #: [id number] differential. Chemistry: Sodium is 143, potassium is 4.4, chloride 108, carbon dioxide slightly elevated at 30, BUN is 26, creatinine is 1.0 and previous creatinine was 1.3 and glucose is 146. LFTs were actually low and albumin was 2.6. Calcium was 8.2. Anti-BNP was slightly elevated at 9266 and again previous echocardiogram showed an EF of 40% with some regional wall motion abnormalities, but no pulmonary hypertension. ABGs yesterday afternoon at 05:45 on 3 liters showed a pO2 of 82, pH 7.46, pCO2 is 36, bicarbonate was 25 and a sat of 95%. Chest x-ray and then CT of the chest showed COPD, hyperinflation. She had some lower lobe fibrotic changes on her CT of the chest. I think the nodule talked about in the right lower lobe appears to be related to her pulmonary fibrosis. With her smoking history, we may of need to follow up in 3 months. No mediastinal or hilar adenopathy is noted. Left lung was noted also. Heart size was upper limits of normal. VQ scan was intermediate probability. Most of the V/Q mismatch was subsegmental and in the right lower lobe. I think this is indeterminate and consistent with her coronary artery disease and/or COPD. I do not think she has had a PE just on the basis of her VQ scan. IMPRESSION: 1. Dyspnea, multifactorial. 2. 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 3. Tobacco abuse, recently quit. 4. Coronary artery disease with stents. PLAN: We will continue antibiotics and steroids. Need to clean up her bronchitis first. She may require supplemental oxygen at home. Room air O2 sats at home have been in the 81 range, I think she would benefit from oxygen short term. If needed, we could do venous Dopplers and possibly a CT angio of the chest since her creatinine is normal, but I do not have a high feeling as far as the risk that she is high risk for pulmonary emboli. I think the V/Q scan is more indicative of her changes of COPD. If she stays in the [facility] than possibly pulmonary rehab as an outpatient might be a good option for her and certainly absolute smoking cessation is imperative. We have talked about that. She states she is done with the cigarettes. Her grandson states he will try and encourage her. Thanks again for allowing us to participate in this lady's care. We will follow up along with you while she is in the hospital. <ELECTRONICALLY SIGNED> By: Timothy Rosario MD 06/15/17 0735 [id number] Rosario MD /nt
[2017-06-15 10:00] VITALS: BP 154/64
[2017-06-15 12:46] VITALS: BP 117/51
[2017-06-15 16:01] VITALS: BP 133/55
[2017-06-15 20:00] VITALS: BP 130/54
[2017-06-16] VITALS: BP 122/38
[2017-06-16 04:00] VITALS: BP 97/48
[2017-06-16 05:35] LABS: ABSOLUTE LYMPHOCYTES 0.4 thou/uL (0.8-5.3); ABSOLUTE MONOCYTES 0.4 thou/uL (0.0-1.2); ABSOLUTE NEUTROPHILS 25.8 thou/uL (1.6-8.1); HEMATOCRIT 36.2 % (37.0-47.0); HEMOGLOBIN 11.7 gm/dL (12.0-15.0); LYMPHOCYTES 1.4 %; MCH 28.7 pg (26.0-34.0); MCHC 32.3 g/dL (28.0-37.0); MCV 88.9 fL (80.0-100.0); MONOCYTES 1.5 %; MPV 8.9 fl. (7.2-11.1); NUCLEATED RBCS 0 /100WBC; PLATELET COUNT* 288 thou/uL (150-400); POLYS 97.1 %; RBC 4.07 mil/uL (4.20-5.00); RDW-CV 16.8 % (10.5-14.5); WBC 26.6 thou/uL (4.0-11.0)
[2017-06-16 06:00] LABS: CALCIUM 8.4 mg/dL (8.5-10.1); CREATININE 1.1 mg/dL (0.6-1.3); POTASSIUM 4.4 mmol/L (3.5-5.1)
[2017-06-16 08:00] VITALS: BP 136/56
--- NOTE | 2017-06-16 09:03 | CON ---
[address] [address] CONSULTATION Name: CEASAR BRICE Room: [address] IN .R.#: [id number] Admission: 06/13/17 Attend Phys: Shania Oneil Discharge: Date of : 34 Report #: [id number] THIS REPORT FOR: //name// CC: Tino Durán DATE OF SERVICE: 06/15/2017 REFERRING PHYSICIAN: Dr. Durán. REASON FOR CONSULTATION: Right renal mass. HISTORY OF PRESENT ILLNESS: This is a pleasant 81-year-old female admitted with multiple medical problems, predominantly cardiac and pulmonary. She is oxygen dependent. Urology was consulted regarding a right renal mass noted on noncontrast CT scan and renal ultrasound. The patient is not aware of any prior masses. She reports a history of UTIs, but denies renal disease or urologic intervention. She denies flank pain, hematuria, or abdominal pain. She reports a good stream with no difficulty voiding. Denies fever or chills. She complains of shortness of breath and orthopnea for which she was admitted at the recommendation of Cardiology. PAST MEDICAL HISTORY: As above. Coronary artery disease status post OH and eluting stent placement done in 05/2017. She is on antiplatelet therapy. History of CHF, cardiomyopathy, COPD, hypertension, pneumonia. PAST SURGICAL HISTORY: Includes cholecystectomy, hysterectomy and cataract surgery. MEDICATIONS: List is reviewed. FAMILY HISTORY: She reports her mother had a ureteral duplication. She does not know of any other renal disease in the family. SOCIAL HISTORY: She lives in [place], but is staying with family here at this time. She quit smoking recently. She denies use of alcohol. REVIEW OF SYSTEMS: As per the history of present illness. Has also had recent weight loss. She denies chest pain or palpitations. PHYSICAL EXAMINATION: VITAL SIGNS: Temperature is 36.4, pulse 91, respirations 18, blood pressure 100/42. GENERAL: This is an 81-year-old female in no acute distress. She is awake, alert [place] [address] CONSULTATION Name: CEASAR BRICE Room: [address] IN [facility]#: [id number] Admission: 06/13/17 Attend Phys: Shania Oneil Discharge: Date of : 34 Report #: [id number] HEENT: Normocephalic, atraumatic. Oropharynx is clear. She is missing several teeth. NECK: Supple. No JVD. RESPIRATORY: Effort and excursion are normal. LUNGS: She has expiratory wheezes. She is on supplemental oxygen. CARDIAC: Rhythm is regular with normal heart sounds. ABDOMEN: Soft, nontender, nondistended. Bladder is nonpalpable. Spine and costovertebral angles are nontender. EXTREMITIES: Warm. Mild bilateral lower extremity edema. Radial pulses are palpable. NEUROLOGIC: She moves all extremities well. GENITOURINARY: Deferred. LABORATORY DATA: Include hemoglobin 12.5, white count 32.0, platelet count 341,000. Sodium 144, potassium 4.0, chloride 105, CO2 33, BUN 42, creatinine 1.0, glucose 153. Urinalysis from 06/04/2017 was remarkable only for trace protein. Noncontrast CT scan of the abdomen and pelvis and renal ultrasound were performed. These reveal a 3.4 cm right upper pole mass that appears to be solid. Also, prominence of the right renal pelvis, small left renal stones, a 28 mm left adrenal lesion and a left renal cyst. Of note, CT of the chest reveals an 8 mm pleural based nodular infiltrate in the right lung base. On my review of CT images, she appears to have some scarring of the right kidney and the configuration of the collecting system is somewhat worrisome for a ureteropelvic junction obstruction, though she has not been symptomatic from this standpoint. I discussed the urologic findings at length with her. I recommended contrast CT scan of the abdomen and pelvis to evaluate this further. We discussed possible options for management if indeed a solid renal mass suspicious for carcinoma is found. We discussed observation, minimally invasive therapy such as biopsy and cryotherapy or radiofrequency ablation. We also discussed partial and possible radical nephrectomy. Given her comorbidities and recent problems including oxygen dependent lung disease and coronary artery disease, status post OH with a recent stent placement and antiplatelet therapy, surgical intervention would certainly be a risky undertaking. In any case, she is not interested in surgery and is hesitant even to consider Interventional Radiology procedures for treatment. We discussed the risks of observation or conservative management. All this of course will depend on findings on her contrast study and she will consider this in the meantime. If renal tumor is suspected, then further evaluation of the lung lesion and/or adrenal lesion may be necessary before any consideration of curative therapy. This may necessitate further imaging, lab testing or biopsy of lesions. IMPRESSION: Right renal mass, small left renal calculi, left adrenal lesion, left renal cyst, possible ureteropelvic junction configuration. PLAN: Check CT of the abdomen and pelvis with contrast. We will make further recommendations after that is available. May need pulmonary's input on biopsy [address] [address] CONSULTATION Name: CEASAR BRICE Room: [address]#: [id number] Admission: 06/13/17 Attend Phys: Shania Oneil Discharge: Date of : 34 Report #: [id number] of the lung lesion and may need further adrenal gland evaluation depending on imaging findings as well. <ELECTRONICALLY SIGNED> By: Sourav Gallego MD 06/16/17 0903 [id number] Gallego MD /nt
[2017-06-16 12:23] VITALS: BP 111/38
[2017-06-16 15:07] LABS: URINE BILIRUBIN NEGATIVE (Negative); URINE BLOOD NEGATIVE (Negative); URINE CLARITY CLEAR; URINE COLOR YELLOW; URINE GLUCOSE-RANDOM NEGATIVE (Negative); URINE KETONES NEGATIVE (Negative); URINE LEUKOCYTES NEGATIVE (Negative); URINE NITRITE NEGATIVE (Negative); URINE PROTEIN NEGATIVE (Negative); URINE UROBILINOGEN 0.2 E.U./dl (0.2-1.0)
[2017-06-16 16:13] VITALS: BP 103/39
[2017-06-16 20:00] VITALS: BP 119/51
[2017-06-17] VITALS: BP 111/52
[2017-06-17 04:00] VITALS: BP 120/40; BP 135/63
[2017-06-17 10:05] VITALS: BP 141/95
[2017-06-17 12:00] VITALS: BP 128/35
[2017-06-17 16:00] VITALS: BP 142/63
[2017-06-17 16:10] LABS: HEMATOCRIT 37.8 % (37.0-47.0); HEMOGLOBIN 12.5 gm/dL (12.0-15.0); MCV 87.8 fL (80.0-100.0); MPV 8.9 fl. (7.2-11.1); RBC 4.3 mil/uL (4.20-5.00); RDW-CV 16.8 % (10.5-14.5); WBC 21.6 thou/uL (4.0-11.0)
[2017-06-17 16:30] LABS: ALBUMIN 2.8 g/dL (3.4-5.0); CALCIUM 8.3 mg/dL (8.5-10.1); CREATININE 1.2 mg/dL (0.6-1.3); POTASSIUM 3.9 mmol/L (3.5-5.1); TOTAL BILIRUBIN 0.5 mg/dL (<0.1-1.0); TOTAL PROTEIN 5.9 g/dL (6.4-8.2)
[2017-06-17 20:39] VITALS: BP 128/59
[2017-06-18] VITALS: BP 156/44
[2017-06-18 04:00] VITALS: BP 126/49
[2017-06-18 08:52] VITALS: BP 127/48
[2017-06-18 11:03] VITALS: BP 138/57
[2017-06-18] MEDS ORDERED: PREDNISONE 10 M10 MG PO (16:17)
[2017-06-18] MEDS ORDERED: BUSPIRONE HCL10 MG PO (16:17)
[2017-06-18] MEDS ORDERED: ATIVAN0.5 MG PO (16:17)
[2017-06-18 16:58] VITALS: BP 118/57
[2017-06-18 19:58] VITALS: BP 133/91
[2017-06-19] VITALS: BP 109/67
[2017-06-19 07:50] VITALS: BP 140/53
[2017-06-19 12:00] VITALS: BP 147/57
[2017-06-19] MEDS ORDERED: SINGULAIR 10 MG10 M1 PO (12:08)
[2017-06-19] MEDS ORDERED: APAP650 PO (12:13)
--- NOTE | 2017-06-24 08:38 | CON ---
[address] [address] CONSULTATION Name: CEASAR BRICE Room: [address] IN .R.#: [id number] Admission: 06/13/17 Attend Phys: Shania Oneil Discharge: 06/19/17 Date of : 34 Report #: [id number] THIS REPORT FOR: //name// CC: Tino Durán TYPE OF REPORT: Cardiology consultation. INDICATION: Elevated troponin. HISTORY OF PRESENT ILLNESS: This patient is a very pleasant and functional 81-year-old white female who was initially seen in this hospital approximately a week and a half ago with apparent pneumonia in the setting of respiratory issues and pneumonia. She was noted to have an elevated troponin. The patient underwent cardiac catheterization and was found to have significant disease, especially involving the circumflex obtuse marginal system. She underwent stenting to the mid circumflex with a drug-eluting stent. At that time, her EF was noted to be 40%-45%. She had no complications from the catheterization/intervention. She was discharged to home in stable condition on 07 of June. She returned to the Emergency Room today after being advised to proceed there from the cardiology office for worsening shortness of breath and orthopnea. She appears to be in acute heart failure at this time. Her NT-pro-BNP is elevated consistent with heart failure. Her troponins are slightly elevated, but trending downward. I suspect this is related to heart failure and not acute coronary syndrome. She is not having chest pain. She continues to have a cough that is now productive of thick yellow sputum. She is not having a fever. She reports definite orthopnea. She is without other cardiac complaint at this time. PAST MEDICAL HISTORY: 1. Coronary artery disease. 2. Chronic systolic heart failure. 3. Ischemic cardiomyopathy. 4. COPD. 5. Hypertension. 6. Recent pneumonia. 7. Remote history of tobacco use. PAST SURGICAL HISTORY: 1. Cholecystectomy. 2. Hysterectomy. 3. Cataract extraction. ALLERGIES: [place] [address] CONSULTATION Name: CEASAR BRICE Room: [address]#: [id number] Admission: 06/13/17 Attend Phys: Shania Oneil Discharge: 06/19/17 Date of : 34 Report #: [id number] HOME MEDICATIONS: Albuterol inhaler as directed, amlodipine 2.5 mg daily, aspirin 81 mg daily, atorvastatin 40 mg at bedtime, steroid cream topically as directed, carvedilol 3.125 mg b.i.d., furosemide 40 mg p.o. daily, Mucinex 600 mg p.o. q.12 hours, Levaquin 750 mg p.o. daily, lisinopril/hydrochlorothiazide 10/12.5 mg 1 tablet daily, Nitrostat sublingually p.r.n., prednisone in tapering fashion, spironolactone 25 mg daily and Brilinta 90 mg b.i.d. SOCIAL HISTORY: The patient is . She [place] in [place] on [place] [address]. She quit smoking a few weeks ago. She does not drink alcohol. FAMILY HISTORY: Two sisters with coronary artery bypass grafting. REVIEW OF SYSTEMS: Positive for 50-pound weight loss. Recent upper respiratory tract infection. 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 She wears glasses without acute visual loss. A 14-point review of systems otherwise unremarkable. PHYSICAL EXAMINATION: VITAL SIGNS: Blood pressure 119/55 and pulse in the 90s and irregular. GENERAL: This is a pleasant elderly female who does not appear to be in distress. HEENT: The patient is wearing glasses. Extraocular muscles intact. Mucous membranes moist. NECK: Shows no jugular venous distention. I do not appreciate carotid bruit. CHEST: Reveals diffuse expiratory wheezes throughout. CARDIOVASCULAR: Reveals a regular rhythm with normal S1 and S2. I do not appreciate gallop or murmur. ABDOMEN: Reveals normal bowel sounds. The abdomen is soft and nontender. EXTREMITIES: Shows trace ankle edema. SKIN: Warm and dry. IMPRESSION AND RECOMMENDATIONS: 1. Rogsl-br-hivvhke combined heart failure. I would switch to IV Lasix at this time and follow inputs and outputs carefully as well as daily labs. 2. Coronary artery disease, presently appears stable. She is not having angina. 3. Reported history of hypertension. At this point, I would discontinue amlodipine in favor of increasing carvedilol and continuing lisinopril for her heart failure. 4. Chronic tobacco use history, recently quit. <ELECTRONICALLY SIGNED> By: Francois Gore MD, FACC 06/24/17 0838 [id number] Gore MD, FACC /nt
== END 2017-06-19 13:17 | disposition home or self-care (01) | DRG 291 ==
LOC: M.ERS 09:35 → M.TBA-ER 10:49 → M.2W 10:49
PROVIDERS: Family Medicine; ADMIT Internal Medicine
PROC: 05HC33Z Insertion of Infusion Device into Left Basilic Vein, Percutaneous Approach (ICD-10-PCS; principal; 2017-06-15)
DX: I11.0 Hypertensive heart disease with heart failure (principal); J96.21 Acute and chronic respiratory failure with hypoxia; J44.1 Chronic obstructive pulmonary disease with (acute) exacerbation; R65.10 Systemic inflammatory response syndrome (SIRS) of non-infectious origin without acute organ dysfunction; D35.02 Benign neoplasm of left adrenal gland; I50.43 Acute on chronic combined systolic (congestive) and diastolic (congestive) heart failure; I25.10 Atherosclerotic heart disease of native coronary artery without angina pectoris; N20.0 Calculus of kidney; F41.0 Panic disorder [episodic paroxysmal anxiety]; N28.1 Cyst of kidney, acquired; E87.6 Hypokalemia; R91.1 Solitary pulmonary nodule; I25.5 Ischemic cardiomyopathy; Z87.891 Personal history of nicotine dependence; Z90.49 Acquired absence of other specified parts of digestive tract; Z90.710 Acquired absence of both cervix and uterus; Z95.5 Presence of coronary angioplasty implant and graft; Z99.81 Dependence on supplemental oxygen; Z79.02 Long term (current) use of antithrombotics/antiplatelets; Z79.52 Long term (current) use of systemic steroids; Z79.899 Other long term (current) drug therapy; Z79.82 Long term (current) use of aspirin; Z82.49 Family history of ischemic heart disease and other diseases of the circulatory system